=== PATIENT | male | born 1990 | race Caucasian/White ===

== ENCOUNTER 2020-01-25 21:08 | Emergency (ER) | payer OTHER ==
[~2020-01-25] VITALS: Ht 182.9 cm; Wt 104.3 kg
[2020-01-26] MEDS ORDERED: CORTISPORIN OTI10 M2 OTIC (00:21)
[2020-01-26 00:31] VITALS: BP 125/81
== END 2020-01-26 00:32 | disposition home or self-care (01) ==
LOC: ER 21:08
DX: T16.1XXA Foreign body in right ear, initial encounter (principal); F17.210 Nicotine dependence, cigarettes, uncomplicated; Z95.0 Presence of cardiac pacemaker; Z90.89 Acquired absence of other organs; X58.XXXA Exposure to other specified factors, initial encounter; Y93.89 Activity, other specified; Y92.096 Garden or yard of other non-institutional residence as the place of occurrence of the external cause; Y99.8 Other external cause status